=== PATIENT | male | born 1960 | race African-American/Black ===

== ENCOUNTER 2021-04-04 19:00 | Outpatient (CLI) | payer BC | END 2021-04-04 19:01 | disposition home or self-care (01) | LOC: SLEEPLAB 19:00 | PROVIDERS: ATTEND Family Medicine | DX: G47.33 Obstructive sleep apnea (adult) (pediatric) (principal); R53.83 Other fatigue; R06.83 Snoring; G47.00 Insomnia, unspecified; I11.9 Hypertensive heart disease without heart failure; G47.10 Hypersomnia, unspecified; E11.9 Type 2 diabetes mellitus without complications; E66.9 Obesity, unspecified; Z68.37 Body mass index [BMI] 37.0-37.9, adult | CPT/HCPCS: 95811 ==

== ENCOUNTER 2022-12-27 23:25 | Inpatient (IN) | payer BC ==
[2022-12-28] MEDS ORDERED: Acetaminophen 325 MG TAB PO PRN (01:01)
[2022-12-28] MEDS ORDERED: HYDROcodone/Acetaminophen 5/325 mg Tablet PO PRN (01:01)
[2022-12-28] MEDS ORDERED: Ondansetron PF 4 MG/2 ML Vial IVP PRN (01:01)
[2022-12-28] MEDS ORDERED: Ondansetron ODT 4 MG TAB PO PRN (01:01)
[2022-12-28 01:29] VITALS: BMI 34.2
[2022-12-28] MEDS ORDERED: Pantoprazole 40 MG VIAL IVP SCH (02:30)
[2022-12-28 03:30] LABS: Iron 12 ug/dL (65-175); Iron Binding Capacity, Total 174 mcg/dL (261-462)
[2022-12-28 03:32] LABS: Anion Gap 14 mmol/L (10-20); BUN (Urea Nitrogen) 22 mg/dL (8.4-25.7); Calc. Creatinine Clearance 76 mL/min (70-130); Calcium 8.2 mg/dL (7.8-10.44); Carbon Dioxide 20 mmol/L (22-29); Chloride 106 mmol/L (98-107); Estimated GFR 58; Glucose 78 mg/dL (70-105); Iron 15 ug/dL (65-175); Potassium 4.1 mmol/L (3.5-5.1); Sodium 136 mmol/L (136-145)
[2022-12-28 03:41] LABS: #Basophils 0.1 thou/uL (0.0-0.2); #Eosinphils 0.1 thou/uL (0.0-0.7); #Lymphocytes 1.1 thou/uL (1.20-3.40); #Monocytes 0.8 thou/uL (0.11-0.59); #Neutrophils 6.7 thou/uL (1.40-6.50); %Basophils 1.5 % (0.0-1.0); %Eosinophils 0.9 % (0.0-10.0); %Lymphocytes 12.7 % (21.0-51.0); %Monocytes 9.4 % (0.0-10.0); %Neutrophils 75.5 % (42.0-75.0); Anisocytosis MODERATE=16-30 cells (100X) (0-5/hpf); Band 4 % (5-11); Eosinophils 1 % (0-10); Hemoglobin 5.4 g/dL (14.0-18.0); Hypochromia MODERATE=16-30 cells (100X) (0-5/hpf); Lymphocytes 8 % (21-51); MDiff Complete? YES; Mean Corpuscular Volume 70.1 fl (78.0-98.0); Microcytosis MODERATE=15-30 cells (100X) (0-5/hpf); Monocytes 11 % (0-10); Neutrophil 76 % (42-75); Platelet Count 318 10x3/uL (130-400); Platelet Morphology Comment Appears Adequate; Polychromasia SLIGHT = 2-3 cells (100X) (0-2/hpf); RBC Distribution Width 20.8 % (11.5-14.5); Red Blood Cell (RBC) Count 2.84 mill/uL (4.70-6.10); Reflex for Review?? NO; White Blood Cell (WBC) Count 8.8 10x3/uL (4.8-10.8)
[2022-12-28 03:55] LABS: Ferritin 873.28 ng/mL (22-322)
[2022-12-28] MEDS: Pantoprazole 40 MG VIAL IVP SCH ×2 (08:47→22:21)
[2022-12-28 09:38] LABS: Hemoglobin 6.5 g/dL (14.0-18.0)
[2022-12-28] MEDS ORDERED: GoLYTELY 4,000 ml Bottle PO SCH (17:00)
[2022-12-29 05:29] LABS: #Eosinphils 0.2 thou/uL (0.0-0.7); #Lymphocytes 1.2 thou/uL (1.20-3.40); #Monocytes 0.8 thou/uL (0.11-0.59); #Neutrophils 6.4 thou/uL (1.40-6.50); %Basophils 0.1 % (0.0-1.0); %Eosinophils 2.8 % (0.0-10.0); %Lymphocytes 13.9 % (21.0-51.0); %Monocytes 8.7 % (0.0-10.0); %Neutrophils 74.5 % (42.0-75.0); Hemoglobin 7.2 g/dL (14.0-18.0); Mean Corpuscular HGB CONC 29.8 g/dL (32.0-36.0); Mean Corpuscular Volume 73.7 fl (78.0-98.0); Mean Platelet Volume 9.7 fL (7.4-10.4); Platelet Count 282 10x3/uL (130-400); RBC Distribution Width 21.4 % (11.5-14.5); Red Blood Cell (RBC) Count 3.27 mill/uL (4.70-6.10); White Blood Cell (WBC) Count 8.6 10x3/uL (4.8-10.8)
[2022-12-29 05:43] LABS: Anion Gap 13 mmol/L (10-20); BUN (Urea Nitrogen) 17 mg/dL (8.4-25.7); Calc. Creatinine Clearance 91 mL/min (70-130); Calcium 8.2 mg/dL (7.8-10.44); Carbon Dioxide 23 mmol/L (22-29); Chloride 106 mmol/L (98-107); Estimated GFR 71; Glucose 75 mg/dL (70-105); Potassium 3.9 mmol/L (3.5-5.1); Sodium 138 mmol/L (136-145)
[2022-12-29] MEDS: Pantoprazole 40 MG VIAL IVP SCH (07:41)
[2022-12-29] MEDS ORDERED: PROPOFOL 200 MG/20 ML VIAL ONE (09:38)
[2022-12-29] MEDS ORDERED: Lidocaine 1% PF 5 ML VIAL ONE (09:38)
[2022-12-29] MEDS ORDERED: PHENYLEPHRINE-NS 100 MCG/ML 10 ML SYRINGE ONE (09:38)
[2022-12-29 17:50] VITALS: BP 129/75; TEMP 98.1
== END 2022-12-29 18:15 | disposition home or self-care (01) | DRG 699 ==
LOC: UNDOADMIN 23:25 → MSONC 23:25 → UNDOADMIN 23:54 → MSONC 23:54
PROVIDERS: ADMIT Hospitalist; ATTEND Hospitalist
PROC: 30233N1 Transfusion of Nonautologous Red Blood Cells into Peripheral Vein, Percutaneous Approach (ICD-10-PCS; principal; 2022-12-28)
PROC: 0DB78ZX Excision of Stomach, Pylorus, Via Natural or Artificial Opening Endoscopic, Diagnostic (ICD-10-PCS; 2022-12-29)
PROC: 0DJD8ZZ Inspection of Lower Intestinal Tract, Via Natural or Artificial Opening Endoscopic (ICD-10-PCS; 2022-12-29)
PROC: 0DB98ZX Excision of Duodenum, Via Natural or Artificial Opening Endoscopic, Diagnostic (ICD-10-PCS; 2022-12-29)
DX: N28.89 Other specified disorders of kidney and ureter (principal); D62 Acute posthemorrhagic anemia; N17.9 Acute kidney failure, unspecified; Z20.822 Contact with and (suspected) exposure to COVID-19; N40.0 Benign prostatic hyperplasia without lower urinary tract symptoms; K31.89 Other diseases of stomach and duodenum; R16.0 Hepatomegaly, not elsewhere classified; K64.8 Other hemorrhoids; N43.3 Hydrocele, unspecified; Z79.899 Other long term (current) drug therapy; Z79.84 Long term (current) use of oral hypoglycemic drugs
CPT/HCPCS: 36415; 36430; 71046; 80048; 82274; 82607; 82728; 83540; 83550; 85014; 85018; 85025; 86850; 86900; 86901; 88305; C9113; J2704; P9016; U0003; U0005